=== PATIENT | female | born 1935 | race Two or more races ===

== ENCOUNTER 2019-06-12 14:04 | Emergency (ER) | payer MEDICARE, MEDICAID ==
[~2019-06-12] VITALS: Ht 162.6 cm; Wt 61.2 kg
[2019-06-12] MEDS ORDERED: ASPIR 8181 MG ORAL (14:10)
[2019-06-12] MEDS ORDERED: ATORVASTATIN CA20 MG ORAL (14:10)
[2019-06-12] MEDS ORDERED: CYMBALTA30 MG ORAL (14:10)
[2019-06-12] MEDS ORDERED: CLOPIDOGREL75 MG ORAL (14:10)
[2019-06-12] MEDS ORDERED: PANTOPRAZOLE SO40 MG ORAL (14:10)
[2019-06-12] MEDS ORDERED: METFORMIN HCL500 M1 ORAL (14:10)
[2019-06-12] MEDS ORDERED: LEVOTHYROXINE75 MCG ORAL (14:10)
[2019-06-12] MEDS ORDERED: [UNRECOGNIZED DRUG - OTHER] (14:10)
[2019-06-12] MEDS ORDERED: AMLODIPINE BES2.5 MG ORAL (14:10)
--- NOTE | 2019-06-12 14:12 | Emergency Room Report ---
History of Present Illness General Chief Complaint: Chest Pain Source: Patient, EMS Present Illness HPI The patient presents with substernal chest pain. She was at rest when this started. She has difficulty describing it. Paramedics said it was a 7/10 when they started treatment. Her EKG was normal in the field. They gave her aspirin and 1 sublingual nitroglycerin. She says the pain is now other 6 or may be a 5. She denies having pain like this in the past. She denies fevers, chills, cough, sore throat, nausea, vomiting, diarrhea, dysuria or abdominal pain. She states she has some L sided neck pain associated with this. The patient has a history of diabetes and hypertension. She never smoked. No calf pain or edema. No palpitations, shortness of breath, depression, visual changes, headache. Allergies: Coded Allergies: No Known Allergies (Unverified , 06/12/19) Patient History Past Medical History: see triage record Social History: Denies: smoking Social History Narrative Born in [facility]. From [facility] facility Reviewed Nursing Documentation: PMH: Agreed; PSxH: Agreed Nursing Documentation-PMH Past Medical History: No History, Except For Hx Hypertension: Yes Hx Diabetes: Yes Review of Systems All Other Systems: negative except mentioned in HPI Physical Exam Vital Signs Date Time Temp Pulse Resp B/P (MAP) Pulse Ox O2 Delivery O2 Flow Rate FiO2 06/12/19 13:59 97.7 85 16 118/73 (88) 97 Room Air Sp02 EP Interpretation: reviewed, normal General Appearance: well appearing, no apparent distress, GCS 15 Head: normocephalic Eyes: bilateral eye PERRL, bilateral eye EOMI, bilateral eye other - Pterygium ENT: moist mucus membranes Neck: supple Respiratory: chest non-tender, lungs clear, normal breath sounds Cardiovascular #1: regular rate, rhythm Cardiovascular #2: 2+ radial (R) Gastrointestinal: normal inspection, normal bowel sounds, non tender, no mass, non-distended Musculoskeletal: back normal, normal range of motion Neurologic: alert, motor strength/tone normal, sensory intact, speech normal, oriented - Was 2 Psychiatric: mood/affect normal Skin: no rash Medical Decision Making Diagnostic Impression: Primary Impression: Chest pain Qualified Codes: R07.9 - Chest pain, unspecified Additional Impressions: Elevated troponin UTI (urinary tract infection) Qualified Codes: N30.00 - Acute cystitis without hematuria Hyperglycemia ER Course The patient presents with substernal chest pain somewhat helped by aspirin and nitroglycerin. Differential includes acute myocardial infarction, acute coronary syndrome, chest wall pain, reflux esophagitis amongst others. The patient will be evaluated with EKG, chest x-ray and labs. The patient will be treated with Pepcid and nitro glycerin paste. The patient is placed on a cardiac/vascular sonographer. EKG normal sinus rhythm with unusual P axis. Nonspecific ST-T wave changes. Lab call with + troponin. Aspirin was given in the field. Neck pain. Morphine ordered. EKG no STEMI. Pain free. Discussed with Dr. Edwards who requests repeat troponin. Trop slightly more elevated. Discussed again with Dr. Edwards. BP slightly high. Amlodipine and Plavix given. Still pain free. Patient stable for ALS transfer to [place]. Laboratory Tests Test 06/12/19 14:10 06/12/19 15:30 06/12/19 16:05 White Blood Count 8.7 K/UL (4.8-10.8) Red Blood Count 4.66 M/UL (4.20-5.40) Hemoglobin 14.6 G/DL (12.0-16.0) Hematocrit 42.0 % (37.0-47.0) Mean Corpuscular Volume 90 FL (80-99) Mean Corpuscular Hemoglobin 31.2 PG (27.0-31.0) H Mean Corpuscular Hemoglobin Concent 34.7 G/DL (32.0-36.0) Red Cell Distribution Width 10.7 % (11.6-14.8) L Platelet Count 239 K/UL (150-450) Mean Platelet Volume 6.7 FL (6.5-10.1) Neutrophils (%) (Auto) 66.9 % (45.0-75.0) Lymphocytes (%) (Auto) 23.2 % (20.0-45.0) Monocytes (%) (Auto) 7.0 % (1.0-10.0) Eosinophils (%) (Auto) 2.1 % (0.0-3.0) Basophils (%) (Auto) 0.9 % (0.0-2.0) Prothrombin Time 10.5 SEC (9.30-11.50) Prothrombin Time INR 1.0 (0.9-1.1) PTT 26 SEC (23-33) Sodium Level 138 MMOL/L (136-145) Potassium Level 4.0 MMOL/L (3.5-5.1) Chloride Level 103 MMOL/L (98-107) Carbon Dioxide Level 26 MMOL/L (21-32) Anion Gap 9 mmol/L (5-15) Blood Urea Nitrogen 25 mg/dL (7-18) H Creatinine 1.2 MG/DL (0.55-1.30) Estimate Glomerular Filtration Rate mL/min (>60) Glucose Level 342 MG/DL (74-106) H Calcium Level 9.1 MG/DL (8.5-10.1) Total Bilirubin 0.4 MG/DL (0.2-1.0) Aspartate Amino Transferase (AST) 21 U/L (15-37) Alanine Aminotransferase (ALT) 18 U/L (12-78) Alkaline Phosphatase 134 U/L (46-116) H Total Creatine Kinase 32 U/L (26-308) Troponin I 0.075 ng/mL (0.000-0.056) 0.084 ng/mL (0.000-0.056) Pro-B-Type Natriuretic Peptide 174 pg/mL (0-125) H Total Protein 6.9 G/DL (6.4-8.2) Albumin 3.4 G/DL (3.4-5.0) Globulin 3.5 g/dL Albumin/Globulin Ratio 1.0 (1.0-2.7) Urine Color Pale yellow Urine Appearance Slightly cloudy Urine pH 5 (4.5-8.0) Urine Specific [place] 1.015 (1.005-1.035) Urine Protein 1+ (NEGATIVE) H Urine Glucose (UA) 4+ (NEGATIVE) H Urine Ketones 1+ (NEGATIVE) H Urine Blood 2+ (NEGATIVE) H Urine Nitrite Negative (NEGATIVE) Urine Bilirubin Negative (NEGATIVE) Urine Urobilinogen Normal MG/DL (0.0-1.0) Urine Leukocyte Esterase 2+ (NEGATIVE) H Urine RBC 5-10 /HPF (0 - 2) H Urine WBC 10-15 /HPF (0 - 2) H Urine Squamous Epithelial Cells Few /LPF (NONE/OCC) Urine Bacteria Many /HPF (NONE) H EKG Diagnostic Results Rate: normal Rhythm: NSR ST Segments: no acute changes - Unusual P axis Rhythm Strip Diag. Results EP Interpretation: yes Rhythm: NSR, no PVC's, no ectopy Chest X-Ray Diagnostic Results Chest X-Ray Diagnostic Results : Chest X-Ray Ordered: Yes # of Views/Limited/Complete: 1 View Indication: Chest Pain EP Interpretation: Yes Interpretation: no consolidation, no effusion, no pneumothorax Impression: No acute disease Electronically Signed by: Electronically signed by Oc Cullen MD Last Vital Signs Date Time Temp Pulse Resp B/P (MAP) Pulse Ox O2 Delivery O2 Flow Rate FiO2 06/12/19 21:05 98.0 79 17 154/67 100 Room Air Status: improved Disposition: [facility] Condition: Serious Oc Cullen MD Jun 12, 2019 14:12
--- NOTE | 2019-06-12 14:19 | NUR ---
ED Nurse Note:pt. was BIBA from home with c/o chest pain for 3 days radiating to her shoulder, pt. is A/Ox3, placed on monitoring engineer and EKG done, blood sent to labs
[2019-06-12 14:33] LABS: BASOPHILS % (AUTO) 0.9 % (0.0-2.0); EOSINOPHILS % (AUTO) 2.1 % (0.0-3.0); HEMOGLOBIN 14.6 G/DL (12.0-16.0); LYMPHOCYTES % (AUTO) 23.2 % (20.0-45.0); MEAN CORPUSCULAR VOLUME 90 FL (80-99); NEUTROPHILS % (AUTO) 66.9 % (45.0-75.0); PLATELET COUNT 239 K/UL (150-450); RED BLOOD COUNT 4.66 M/UL (4.20-5.40); RED CELL DISTRIBUTION WIDTH 10.7 % (11.6-14.8); WHITE BLOOD COUNT 8.7 K/UL (4.8-10.8)
[2019-06-12 14:46] LABS: ANION GAP 9 mmol/L (5-15); BLOOD UREA NITROGEN 25 mg/dL (7-18); CALCIUM 9.1 MG/DL (8.5-10.1); CARBON DIOXIDE 26 MMOL/L (21-32); CHLORIDE 103 MMOL/L (98-107); CREATININE 1.2 MG/DL (0.55-1.30); SODIUM 138 MMOL/L (136-145)
[2019-06-12] MEDS: Nitroglycerin 2% oint pkt TOPIC ONE (14:51)
[2019-06-12 14:57] LABS: ALANINE AMINOTRANSFERASE 18 U/L (12-78); ALBUMIN 3.4 G/DL (3.4-5.0); ALKALINE PHOSPHATASE 134 U/L (46-116); ASPARTATE AMINO TRANSFERASE 21 U/L (15-37); BILIRUBIN,TOTAL 0.4 MG/DL (0.2-1.0); CREATINE KINASE 32 U/L (26-308)
--- NOTE | 2019-06-12 15:04 | Diagnostic Imaging Report ---
Indication: Dyspnea Comparison: None A single view chest radiograph was obtained. Findings: No definite infiltrate or pulmonary vascular congestion identified. The heart is enlarged. The aorta is mildly enlarged consistent with atherosclerotic vascular disease. The bones are osteopenic. Impression: No acute disease
[2019-06-12] MEDS: Morphine Sulfate 2mg/ml Inj(IV/IM USE ONLY) IVP ONE (15:06)
[2019-06-12 15:12] VITALS: BP 145/73
--- NOTE | 2019-06-12 15:12 | NUR ---
ED Nurse Note:pt. c/o left shoulder pain -given morphine
[2019-06-12 15:50] LABS: APPEARANCE,URINE SLIGHTLY CLOUDY; BILIRUBIN, URINE NEGATIVE (NEGATIVE); COLOR,URINE PALE YELLOW; GLUCOSE, URINE (UA) 4+ (NEGATIVE); KETONES,URINE 1+ (NEGATIVE); LEUKOCYTE ESTERASE ,URINE 2+ (NEGATIVE); NITRITE,URINE NEGATIVE (NEGATIVE); PH,URINE 5 (4.5-8.0); PROTEIN,URINE 1+ (NEGATIVE); UROBILINOGEN,URINE NORMAL MG/DL (0.0-1.0)
[2019-06-12] MEDS: cefTRIAXone 1 GM in NS 55 ML IVPB ONE (16:42)
[2019-06-12 17:31] VITALS: BP 150/69
--- NOTE | 2019-06-12 19:07 | NUR ---
ED Nurse Note:MD notified abou pt's BP going up to 175/79, report given to narda
--- NOTE | 2019-06-12 19:10 | NUR ---
ED Nurse Note: Received Pt and report from day shift. Knowing Pt will transfer to [place], will give report and prepare paper work.
[2019-06-12 19:30] VITALS: BP 171/70
--- NOTE | 2019-06-12 20:45 | NUR ---
ED Nurse Note: Report given to DANIELEL Farfan. Pt is AO x 4times, VSS, on room air no distress. Family will meet Pt at [place].
[2019-06-12 21:00] VITALS: BP 154/67
--- NOTE | 2019-06-12 21:01 | NUR ---
ED Nurse Note: Report given to [facility] Rebollar, Pt is AO x 4times, VSS, on room air no distress. Pt's belongings took away by family. Pt will arrive [place] in 45 minutes.
[2019-06-12 21:05] VITALS: BP 154/67
== END 2019-06-12 21:08 | disposition short-term general hospital (02) ==
LOC: EDBD 14:04 → EMR 14:30
DX: R07.89 Other chest pain (principal); R79.89 Other specified abnormal findings of blood chemistry; N39.0 Urinary tract infection, site not specified; E11.65 Type 2 diabetes mellitus with hyperglycemia
CPT/HCPCS: 36415; 71045; 80053; 81003; 82550; 83880; 84484; 85025; 85610; 85730; 87086; 96365; 96375; 99285; J0696; J2270; S0028